=== PATIENT | female | born 1995 | race Caucasian/White ===

== ENCOUNTER 2022-03-10 02:44 | Inpatient (IN) ==
[2022-03-10] MEDS ORDERED: LACTATED RINGERS 500 ML IV PRN (02:53)
[2022-03-10] MEDS ORDERED: CARBOPROST TROMETHAMINE 250 MCG/ML AMP IM PRN (02:53)
[2022-03-10] MEDS ORDERED: METHYLERGONOVINE 0.2 MG/1 ML AMP IM PRN (02:53)
[2022-03-10] MEDS ORDERED: TRANEXAMIC ACID 1,000 MG in SODIUM CHLORIDE 0.9% 100 ML IV PRN (02:53)
[2022-03-10] MEDS ORDERED: miSOPROStoL 200 MCG TABLET RECTAL PRN (02:53)
[2022-03-10] MEDS ORDERED: ONDANSETRON 4 MG/2 ML VIAL IV PRN (02:53)
[2022-03-10] MEDS ORDERED: LACTATED RINGERS 1,000 ML IV SCH (03:30)
[2022-03-10] MEDS ORDERED: OXYTOCIN/LR 20 UNIT/1,000 ML BAG IV ONE ×2 (03:30→15:27)
[2022-03-10] MEDS ORDERED: LACTATED RINGERS 250 ML IV ONE (03:30)
[2022-03-10] MEDS ORDERED: OXYTOCIN/LR 20 UNIT/1,000 ML BAG IV SCH (03:30)
[2022-03-10 03:41] LABS: Basophils % 0.2 % (0.0-0.8); Eosinophils # 0.1 10*3/uL (0.0-0.87); Eosinophils % 0.8 % (0.00-10.9); Hematocrit 31.5 VOL% (35.7-47.0); Hemoglobin 9.6 GM/DL (12.0-16.0); Immature Granulocytes % 1.7 %; Immature Granulocytes Absolute 0.19 #; Lymphocytes # 2.2 10*3/uL (1.4-4.0); Lymphocytes % 19.7 % (21.3-54.2); Mean Corpuscular HGB Conc 30.5 GM/DL (32-36); Mean Corpuscular Volume 81.4 FL (87-102); Mean Platelet Volume 11.5 FL (9.6-12.0); Monocytes % 9.2 % (1.7-12.7); Neutrophils % 68.4 % (38.7-73.9); Platelet Count 212 T/CUMM (130-400); Red Blood Count 3.87 MC/CUMM (3.8-5.5); Red Cell Distribution Width 14.6 % (9.3-17.3); White Blood Count 11.2 T/CUMM (4-12)
[2022-03-10 03:58] LABS: Alanine Aminotransferase 14 U/L (13-56); Albumin 2.3 G/DL (3.4-5.0); Alkaline Phosphatase 184 U/L (45-117); Aspartate Amino Transferase 16 U/L (0-37); Bilirubin,Total < 0.39 MG/DL (0.20-1.00); Blood Urea Nitrogen 11 MG/DL (7-18); Calcium 8.7 MG/DL (8.5-10.1); Carbon Dioxide 19 MMOL/L (21-32); Chloride 110 MMOL/L (98-107); Glucose 92 MG/DL (74-106); Osmolality,Calculated 273.7 MOS/KG (273-304); Potassium 3.7 MMOL/L (3.5-5.1); Sodium 138 MMOL/L (136-145); Total Protein 6.6 G/DL (6.4-8.2)
[2022-03-10] MEDS ORDERED: ePHEDrine 50 MG/ML VIAL IV PRN (08:16)
[2022-03-10] MEDS ORDERED: diphenhydrAMINE 50 MG/1 ML VIAL IV PRN ×2 (08:16)
[2022-03-10] MEDS ORDERED: hydrOXYzine HCL 25 MG/1 ML VIAL IM PRN (08:16)
[2022-03-10] MEDS ORDERED: LACTATED RINGERS 1,000 ML IV ONE (08:16)
[2022-03-10] MEDS ORDERED: CITRIC ACID/SODIUM CITRATE 30 ML UDCUP PO ONE (08:16)
[2022-03-10] MEDS ORDERED: NALOXONE 0.4 MG/ML VIAL IV PRN (08:16)
[2022-03-10] MEDS ORDERED: PROMETHAZINE 25 MG/1 ML VIAL IM ONE (08:16)
[2022-03-10] MEDS ORDERED: FAMOTIDINE 20 MG/2 ML VIAL IV ONE (08:16)
[2022-03-10] MEDS ORDERED: fentaNYL 2 MCG/ROPIV 0.2% EPID 100 ML EPIDURAL SCH (08:30)
[2022-03-10 10:45] LABS: Mucus,Urine Occasional /LPF (Occasional); RBC,Urine 1 /HPF (0-4); Squamous Epithelial Cell,Urine Occasional /HPF (0-10)
[2022-03-10 10:46] LABS: Bilirubin,Urine Negative (Negative); Blood, Urine Trace mg/dL (Negative); Glucose,Urine (UA) Negative (Negative); Ketones,Urine Negative (Negative); Nitrite,Urine Negative (Negative); Protein,Urine Negative (Negative); Urine Appearance Clear (Clear); Urine Color Yellow (Yellow); Urine Urobilinogen 0.2 eU/dL (<2.0)
[2022-03-10] MEDS ORDERED: SODIUM CHLORIDE 0.9% 0 ML IV ONE (12:56)
[2022-03-10] MEDS ORDERED: miSOPROStoL 200 MCG TABLET ONE (12:56)
[2022-03-10] MEDS ORDERED: TRANEXAMIC ACID 1,000 MG/10 ML VIAL ONE (12:56)
[2022-03-10] MEDS ORDERED: CARBOPROST TROMETHAMINE 250 MCG/ML AMP IM ONE (12:57)
[2022-03-10] MEDS ORDERED: METHYLERGONOVINE 0.2 MG/1 ML AMP ONE (12:57)
[2022-03-10 13:24] LABS: Cord Venous Blood PO2 32.4
[2022-03-10 13:26] LABS: Cord Arterial Blood HCO3 21.2 MMOL/L
[2022-03-10] MEDS ORDERED: oxyCODONE/ACETAMINOPHEN 5-325 MG TABLET PO PRN ×2 (15:27)
[2022-03-10] MEDS ORDERED: ACETAMINOPHEN 325 MG TABLET PO PRN (15:27)
[2022-03-10] MEDS ORDERED: HYDROCORTISONE 2.5% RECTAL CREAM 30 GM TUBE TOP PRN (15:27)
[2022-03-10] MEDS ORDERED: BISACODYL 10 MG SUPP RECTAL PRN (15:27)
[2022-03-10] MEDS ORDERED: MEASLES/MUMPS/RUBELLA VACCINE 0.5 ML VIAL SUBCUT ONE (15:27)
[2022-03-10] MEDS ORDERED: LANOLIN 50% CREAM 0.3 OZ TUBE TOP PRN (15:27)
[2022-03-10] MEDS ORDERED: WITCH HAZEL PADS 100/JAR TOP PRN (15:27)
[2022-03-10] MEDS ORDERED: DIPH/TET/ACEL PERT BOOSTER VACCINE 0.5 ML VIAL IM ONE (15:27)
[2022-03-10] MEDS ORDERED: RHO(D) IMMUNE GLOBULIN 300 MCG SYRINGE IM ONE (15:27)
[2022-03-10] MEDS ORDERED: BENZOCAINE 20%/MENTHOL 0.5% SPRAY 56 GM CAN TOP PRN (15:27)
[2022-03-10] MEDS: DOCUSATE SODIUM 100 MG CAPSULE PO SCH (20:51)
[2022-03-10] MEDS: IBUPROFEN 800 MG TABLET PO PRN (22:01)
[2022-03-11] MEDS: IBUPROFEN 800 MG TABLET PO PRN ×2 (05:39→18:10)
[2022-03-11 05:48] LABS: Basophils % 0.2 % (0.0-0.8); Eosinophils # 0.1 10*3/uL (0.0-0.87); Eosinophils % 0.7 % (0.00-10.9); Hematocrit 29.3 VOL% (35.7-47.0); Hemoglobin 8.7 GM/DL (12.0-16.0); Immature Granulocytes Absolute 0.13 #; Lymphocytes # 2.2 10*3/uL (1.4-4.0); Lymphocytes % 17.5 % (21.3-54.2); Mean Corpuscular HGB Conc 29.7 GM/DL (32-36); Mean Corpuscular Volume 82.8 FL (87-102); Mean Platelet Volume 11.4 FL (9.6-12.0); Monocytes # 0.8 10*3/uL (0.11-0.8); Monocytes % 6.5 % (1.7-12.7); Neutrophils % 74.1 % (38.7-73.9); Platelet Count 180 T/CUMM (130-400); Red Blood Count 3.54 MC/CUMM (3.8-5.5); Red Cell Distribution Width 14.6 % (9.3-17.3); White Blood Count 12.6 T/CUMM (4-12)
[2022-03-11] MEDS: DOCUSATE SODIUM 100 MG CAPSULE PO SCH ×2 (09:39→21:24)
[2022-03-11] MEDS: FERROUS SULFATE 325 MG TABLET PO SCH ×2 (09:39→21:24)
[2022-03-12 08:24] VITALS: BP 120/60
[2022-03-12] MEDS: FERROUS SULFATE 325 MG TABLET PO SCH (09:05)
[2022-03-12] MEDS: DOCUSATE SODIUM 100 MG CAPSULE PO SCH (09:05)
[2022-03-12] MEDS ORDERED: DIPH/TET/ACEL PERT BOOSTER VACCINE 0.5 ML VIAL IM ONE (11:44)
== END 2022-03-12 13:45 | disposition home or self-care (01) | DRG 560 ==
LOC: N.LD 02:44 → N.OB 15:10
PROVIDERS: ADMIT Obstetrics & Gynecology; ATTEND Obstetrics & Gynecology